=== PATIENT | female | born 1960 | race Caucasian/White ===

== ENCOUNTER 2018-10-16 06:51 | Emergency (ER) | payer OTHER ==
[~2018-10-16] VITALS: Ht 157.5 cm; Wt 52.2 kg
[~2018-10-16 06:51] MED LIST: CEPHALEXIN500 M1; PROMETHAZINE12.5 MG; ULTRAM50 MG
== END 2018-10-16 09:22 | disposition home or self-care (01) ==
LOC: ER 06:51
DX: K64.4 Residual hemorrhoidal skin tags (principal)

== ENCOUNTER 2025-08-10 18:54 | Emergency (ER) | payer OTHER ==
[~2025-08-10] VITALS: Ht 157.5 cm; Wt 51.7 kg
[2025-08-10] MEDS ORDERED: ONDANSETRON 4 MG TAB.RAPDIS PO ONE ×2 (20:00→21:05)
[2025-08-10] MEDS ORDERED: BUTALB/ACETAMINOPHEN/CAFFEINE 1 TAB TABLET PO ONE ×2 (20:00→21:04)
[2025-08-10 22:37] LABS: COVID-19 AG NEGATIVE (NEGATIVE)
[2025-08-10] MEDS ORDERED: BUTALBIT-ACETA1 EACH PO (22:42)
[2025-08-10] MEDS ORDERED: PEPCID AC20 MG PO (22:42)
[2025-08-10] MEDS ORDERED: OSEL75CA PO (22:42)
[2025-08-10 23:21] LABS: BASO % 0.9 % (0.1-1.2); EOS # 0.02 (0.04-0.54); EOS % 0.3 % (0.7-7.0); LYMPH # 1.18 (1.18-3.74); LYMPH % 17.5 % (19.3-53.1); MEAN PLATELET VOLUME 9.50 fl (9.4-12.4); MONO # 0.69 (0.24-0.82); MONO % 10.2 % (4.7-12.5); NEUT # 4.78 (1.56-6.13); NEUT % 70.7 % (34.0-71.1); RED CELL DISTRIBUTION WIDTH 13.6 % (11.6-14.4)
== END 2025-08-10 22:56 | disposition home or self-care (01) ==
LOC: ER 18:55
PROVIDERS: General Practice
DX: J10.1 Influenza due to other identified influenza virus with other respiratory manifestations (principal); Z20.822 Contact with and (suspected) exposure to COVID-19; Z88.8 Allergy status to other drugs, medicaments and biological substances; Z91.013 Allergy to seafood